=== PATIENT | female | born 1985 | race Caucasian/White ===

== ENCOUNTER 2022-08-23 19:02 | Outpatient (CLI) | payer MEDICAID, OTHER ==
[~2022-08-23] VITALS: Ht 170.2 cm; Wt 94.4 kg
[2022-08-23 19:25] VITALS: BP 119/71
[2022-08-23 19:30] VITALS: BP 119/71
[2022-08-23] MEDS ORDERED: FERR-84 PO (19:51)
[2022-08-23] MEDS ORDERED: LIOT5TAB10 PO (19:51)
[2022-08-23] MEDS ORDERED: LEVO137C4 PO (19:51)
[2022-08-23] MEDS ORDERED: PREN-142 PO (19:51)
[2022-08-23 19:52] LABS: BILIRUBIN,URINE NEGATIVE (NEGATIVE); CLARITY,URINE CLEAR; COLOR,URINE DARK YELLOW; GLUCOSE, URINE (UA) NEGATIVE (NEGATIVE); KETONES,URINE NEGATIVE (NEGATIVE); LEUKOCYTE ESTERASE ,URINE NEGATIVE (NEGATIVE); NITRITE,URINE NEGATIVE (NEGATIVE); PH,URINE 6.5 (5-9); PROTEIN,URINE NEGATIVE (NEGATIVE)
[2022-08-23 20:06] LABS: AMORPHOUS SEDIMENT,UR FEW AMOR URATES /LPF; BACTERIA,URINE TRACE /HPF; RBC,URINE 0-2 /HPF; WBC,URINE 0-2 /HPF
--- NOTE | 2022-08-23 20:23 | OB Triage Report ---
Standard Progress Note Progress Notes/Assess & Plan Date Seen by a Provider: August 23, 2022 Time Seen by a Provider: 20:21 Expected Date of Delivery: August 22, 2022 Gestational Age in Weeks: 40 Gestational Age in Days: 1 LMP/JAMIA Comment: IUP @ 40w1d Progress/Assessment & Plan This 36yo presents to L&D with c/o CTXs Denies LOF VB but states decreased movement. FHT 130 Reactive CVX 3/50/-4 Per RN no change after 2hr TOCOs occasional Final Diagnosis IUP @ 40w1d False labor DC to home Labor precautions Keep next appt. Diagnosis/Problems Diagnosis/Problems (1) 40 weeks gestation of Status: Acute Assessment & Plan: no cervical change DC to home Labor precautions Keep next appt (2) False labor after 37 completed weeks of gestation Status: Acute Assessment & Plan: no cervical change DC to home Labor precautions Keep next appt LUCRECIA BREWER DO August 23, 2022 20:23
== END 2022-08-23 21:42 | disposition home or self-care (01) ==
LOC: WSo 19:02 → LDRP 19:02 → WSo 21:42
PROVIDERS: ATTEND Obstetrics & Gynecology
DX: O47.1 False labor at or after 37 completed weeks of gestation (principal); Z3A.40 40 weeks gestation of pregnancy
CPT/HCPCS: 81000; 99213

== ENCOUNTER 2022-08-24 13:32 | Outpatient (CLI) | payer MEDICAID ==
[~2022-08-24] VITALS: Ht 170.2 cm; Wt 94.2 kg
[~2022-08-24 13:32] MED LIST: FERR-84 PO; LEVO137C4 PO; LIOT5TAB10 PO; PREN-142 PO
[2022-08-24 14:03] VITALS: BP 117/61
--- NOTE | 2022-08-25 10:44 | OB Triage Report ---
Standard Progress Note Progress Notes/Assess & Plan Time Seen by a Provider: 10:39 Expected Date of Delivery: August 22, 2022 Gestational Age in Weeks: 40 Gestational Age in Days: 2 LMP/JAMIA Comment: JAMIA is 08/22/22 dated by LMP, which was consistent with a 7 week ultrasound Progress/Assessment & Plan Patient not seen by Physician. RN report received Pt presented for contractions x2 days. Cervical exam was 3cm/thick/ballotable station, which was unchanged from exam performed in clinic 08/20/22. Patient was comfortable in triage and did not desire pain management while in triage. SVE remained unchanged with 1-2 hr labor check in triage. She was seen in triage one day prior for same concern, and UA was unremarkable. Patient had no other concerns. Vitals signs were stable, FHT reactive, and contractions on toco were q 2- 9 minutes, and irregular. Patient has a follow-up appointment scheduled for 08/27/22, and instructed to follow-up with scheduled visit. Patient was discharged home in good medical condition with return precautions Final Diagnosis Intrauterine at 40w2d Uterine contractions CASEY SCHROEDER MD August 25, 2022 10:44
== END 2022-08-24 16:19 | disposition home or self-care (01) ==
LOC: LDRP 13:32 → WSo 13:32
PROVIDERS: ATTEND Obstetrics & Gynecology
DX: O47.1 False labor at or after 37 completed weeks of gestation (principal); Z3A.40 40 weeks gestation of pregnancy
CPT/HCPCS: 99213

== ENCOUNTER 2022-08-28 00:40 | Inpatient (IN) | payer MEDICAID ==
[~2022-08-28] VITALS: Ht 170.2 cm; Wt 94.4 kg
[2022-08-28] VITALS (9 sets, daily range): BP systolic 110–139; BP diastolic 57–92
[2022-08-28 00:59] LABS: BILIRUBIN,URINE NEGATIVE (NEGATIVE); CLARITY,URINE TURBID; COLOR,URINE YELLOW; GLUCOSE, URINE (UA) NEGATIVE (NEGATIVE); KETONES,URINE NEGATIVE (NEGATIVE); LEUKOCYTE ESTERASE ,URINE 2+ (NEGATIVE); NITRITE,URINE NEGATIVE (NEGATIVE); PROTEIN,URINE NEGATIVE (NEGATIVE)
[2022-08-28] MEDS ORDERED: D5 LR IV SOLUTION 1,000 ML IV SCH (01:15)
[2022-08-28] MEDS ORDERED: MINERAL OIL 30 ML UDC TOP PRN (01:15)
[2022-08-28 01:29] LABS: BACTERIA,URINE LARGE /HPF; WBC,URINE 50-100 /HPF; YEAST,URINE FEW /HPF
[2022-08-28 01:35] LABS: BASOPHILS % (AUTO) 0 % (0-10); EOSINOPHILS # (AUTO) 0.2 10^3/uL (0.0-0.3); EOSINOPHILS % (AUTO) 2 % (0-10); HEMATOCRIT 39 % (35-52); HEMOGLOBIN 13.5 g/dL (11.5-16.0); LYMPHOCYTES % (AUTO) 20 % (12-44); MEAN CORPUSCULAR HEMOGLOBIN 32 pg (25-34); MEAN CORPUSCULAR HGB CONC 35 g/dL (32-36); MEAN CORPUSCULAR VOLUME 92 fL (80-99); MEAN PLATELET VOLUME 11.6 fL (9.0-12.2); MONOCYTES % (AUTO) 10 % (0-12); NEUTROPHILS # (AUTO) 6.8 10^3/uL (1.8-7.8); NEUTROPHILS % (AUTO) 68 % (42-75); PLATELET COUNT 175 10^3/uL (130-400)
[2022-08-28] MEDS ORDERED: OXYTOCIN PRE-MIX DRIP 1,000 ML IV ONE (01:52)
[2022-08-28] MEDS ORDERED: LIDOCAINE 1% INJ 10 ML VIAL ONE (02:00)
[2022-08-28] MEDS ORDERED: OXYTOCIN PRE-MIX DRIP 500 ML IV SCH (03:00)
[2022-08-28] MEDS ORDERED: WITCH HAZEL(TUCKS) 40 EA JAR TOP PRN (03:00)
[2022-08-28] MEDS ORDERED: BENZOCAINE/MENTHOL (DERMOPLAST) 56 ML CAN TP PRN (03:00)
[2022-08-28] MEDS ORDERED: TETANUS,DIPTH,PERTUSS P/F (BOOSTRIX) 0.5 ML VIAL IM ONE (03:00)
[2022-08-28] MEDS ORDERED: MEASLES,MUMPS,RUBELLA 1 EA INJ SQ ONE (03:00)
[2022-08-28] MEDS ORDERED: NALOXONE 0.4 MG/ML 1 ML (NARCAN) VIAL IV PRN (03:00)
--- NOTE | 2022-08-28 03:06 | History & Physical-OB ---
OB - Chief Complaint & HPI Date/Time Date of Admission: Date of Admission: August 28, 2022 at 01:16 Date seen by a Provider: August 28, 2022 Time Seen by a Provider: 01:40 Chief Complaint/History OB-Reason for Admission/Chief: Onset of Labor Hx : 5 Hx Para: 3 Expected Date of Delivery: August 22, 2022 Gestational Age in Weeks: 40 Gestational Age in Days: 6 Admission Nurse Assessment Rev: Yes Allergies and Home Medications Allergies Coded Allergies: Penicillins (Verified Allergy, Intermediate, Rash, 08/23/22) amoxicillin (Verified Allergy, Intermediate, Rash, 08/23/22) Patient Home Medication List Home Medication List Reviewed: Yes Ferrous Sulfate (Iron) Unknown Strength Tablet, Unknown Dose PO DAILY, (Reported) Entered as Reported by: LOIDA LAGOS on 08/23/221950 Last Action: Held Levothyroxine Sodium (Levothyroxine) 137 Mcg Capsule, 137 MCG PO DAILY, (Reported) Entered as Reported by: LOIDA LAGOS on 08/23/221950 Last Action: Converted Liothyronine Sodium (Liothyronine Sodium) 5 Mcg Tablet, 5 MCG PO DAILY, (Reported) Entered as Reported by: LOIDA LAGOS on 08/23/221950 Last Action: Converted Vit No.124/Iron/FA ( Vitamin Tablet) Unknown Strength Tablet, Unknown Dose PO DAILY, (Reported) Entered as Reported by: LOIDA LAGOS on 08/23/221950 Last Action: Converted OB - History Hx of Present Care: Yes Ultrasounds: Normal mid trimester US Obstetrical Complications: None Medical Complications: Other (hypothyroid) Information Induced Hypertension: No Maternal Gestational Diabetes: No Hemorrhage: No Obstetrical History Hx : 5 Hx Para: 3 Hx # Term Pregnancies: 2 Hx # Pregnancies: 1 Number of Living Children: 3 Hx Termination: No Hx Total # of Abortions (Spona: 1 Hx Multiple Gestation: No Hx Ectopic : No Hx Stillbirth: No Hx Complication: No Hx Induced Hypertens: No Hx Maternal Gestational Diabet: No Hx Hemorrhage: No Delivery History Hx Dystocia: No Hx Forceps Assisted Delivery: No Hx Vacuum Extraction Assisted: No Hx Placenta Abnormality: No Hx Distress: No Hx Large For Gestational Age I: No Hx Small for Gestational Age I: No Hx Section: No Hx Vaginal Delivery Post C-Sec: No Hx Blood Disorders: No Adverse Rxn to Tranfusion: No Patient Past Medical History hypothyroid Social History/Family History Alcohol Use: Denies Use Recreational Drug Use: No 2nd Hand Smoke Exposure: No Immunizations Rubella: immune RPR/VDRL: Negative GBS Status: Negative HBsAG: Negative OB - Admission Exam Physical Exam Vitals: Vital Signs 08/28/22 01:04 Temp 36.3 Pulse 77 Resp 18 B/P (MAP) 131/91 Pulse Ox 99 O2 Delivery Room Air HEENT: NCAT Heart: Rhythm Normal Lungs: Clear Abdomen: Gravid Extremities: Normal Cervical Dilatation: 8cm Effacement: 100% Station: -1 Membranes: Intact (AROM large amount clear fluid) Amniotic Fluid: Clear Heart Rate: 130's Accelerations: Accelerations Present Decelerations: No Decelerations Short Term Variability: Present [facility] Variability: Average (6-25) Contractions on Admission: < 5 Minutes Apart Date/Time Contractions Began;: 08/27/22 2300 Frequency of Contractions: q1-2min Intensity: Firm Labs Laboratory Tests Test 08/28/22 00:30 08/28/22 01:20 Range/Units Urine Color YELLOW Urine Clarity TURBID Urine pH 6.0 5-9 Urine Specific [place] 1.025 H 1.016-1.022 Urine Protein NEGATIVE NEGATIVE Urine Glucose (UA) NEGATIVE NEGATIVE Urine Ketones NEGATIVE NEGATIVE Urine Nitrite NEGATIVE NEGATIVE Urine Bilirubin NEGATIVE NEGATIVE Urine Urobilinogen 1.0 < = 1.0 MG/DL Urine Leukocyte Esterase 2+ H NEGATIVE Urine RBC (Auto) 2+ H NEGATIVE Urine RBC 10-25 H /HPF Urine WBC 50-100 H /HPF Urine Squamous Epithelial Cells 10-25 H /HPF Urine Crystals NONE /LPF Urine Bacteria LARGE H /HPF Urine Casts NONE /LPF Urine Mucus SMALL H /LPF Urine Yeast FEW H /HPF Urine Culture Indicated YES White Blood Count 10.0 4.3-11.0 10^3/uL Red Blood Count 4.24 3.80-5.11 10^6/uL Hemoglobin 13.5 11.5-16.0 g/dL Hematocrit 39 35-52 % Mean Corpuscular Volume 92 80-99 fL Mean Corpuscular Hemoglobin 32 25-34 pg Mean Corpuscular Hemoglobin Concent 35 32-36 g/dL Red Cell Distribution Width 12.5 10.0-14.5 % Platelet Count 175 130-400 10^3/uL Mean Platelet Volume 11.6 9.0-12.2 fL Immature Granulocyte % (Auto) 1 % Neutrophils (%) (Auto) 68 42-75 % Lymphocytes (%) (Auto) 20 12-44 % Monocytes (%) (Auto) 10 0-12 % Eosinophils (%) (Auto) 2 0-10 % Basophils (%) (Auto) 0 0-10 % Neutrophils # (Auto) 6.8 1.8-7.8 10^3/uL Lymphocytes # (Auto) 2.0 1.0-4.0 10^3/uL Monocytes # (Auto) 1.0 0.0-1.0 10^3/uL Eosinophils # (Auto) 0.2 0.0-0.3 10^3/uL Basophils # (Auto) 0.0 0.0-0.1 10^3/uL Immature Granulocyte # (Auto) 0.1 0.0-0.1 10^3/uL OB - Assessment/Plan/Diagnosis Assessment Assessment: active labor Admission Dx IUP@ 40w6d Active Labor GBS neg Rubella immune O+ Admission Status: Inpatient Order (span 2 midnights) Reason for Inpatient Admission: Pt is 36yo presenting to L&D @ 40w6d with c/o CTXs that started around 2330 tonight She denies LOF VB GBS neg. Upon arrival CVX was 4cm per RN and CTXs Q1-2min Plan Plan: Expectant Management Discharge Diagnosis Diagnosis: IUP@ 40w6d GBS neg Rubella immune O+ LUCRECIA BREWER DO August 28, 2022 03:06
--- NOTE | 2022-08-28 03:26 | OB Labor & Delivery Record ---
Vag Delivery Note Vag Delivery Note Date of Delivery: 08/28/22 Preoperative Diagnosis: Elida Sandhu is a (36 /Para 5 / 3, Gestational Age (wks)40with [ ] Postoperative Diagnosis: Same Surgeon: LUCRECIA BREWER [employer]: Anesthesia: None Delivery Type: Findings: [] Viable female , apgars 7/9 weight 6#9oz 2970g Lacerations: none Intact placenta with 3 vessel cord. Nuchal cord x1 loose Estimated Blood Loss: 100 ml Complications: None Condition: Stable Description of Procedure: The patient is a 36 year old female who presented with CTXs and cervical change. She was admitted and informed consent was obtained. Her labor course was uneventful. She progressed to complete dilatation and began to push. She was then set up for delivery. The infant's head was delivered atraumatically in the MARY BETH position.A Nuchal cord x1 was loose and reduced. The anterior (right) shoulder delivered followed by the posterior shoulder and remainder of the infant's body without difficulty. Upon delivery, the infant was vigorous and placed on maternal chest and the mouth and nares were bulb suctioned. After a delayed cord was doubly clamped and cut and the remained on maternal chest. The placenta with 3-vessel cord delivered spontaneously and intact. Vigorous fundal massage was performed and the fundus was found to be firm. QBL w as 100cc IV oxytocin was given. Examination of the vagina and perineum revealed no lacerations. All sponge, instrument and needle counts were correct x2. Mom and baby were both in stable condition in the labor suite. Vitals - Labs Vital Signs - I&O Vital Signs Date Time Temp Pulse Resp B/P (MAP) Pulse Ox O2 Delivery O2 Flow Rate FiO2 08/28/22 01:04 36.3 77 18 131/91 99 Room Air Labs Laboratory Tests 08/28/22 00:30: Urine Color YELLOW, Urine Clarity TURBID, Urine pH 6.0, Urine Specific [place] 1.025H, Urine Protein NEGATIVE, Urine Glucose (UA) NEGATIVE, Urine Ketones NEGATIVE, Urine Nitrite NEGATIVE, Urine Bilirubin NEGATIVE, Urine Urobilinogen 1.0, Urine Leukocyte Esterase 2+H, Urine RBC (Auto) 2+H, Urine RBC 10-25H, Urine WBC 50-100H, Urine Squamous Epithelial Cells 10-25H, Urine Crystals NONE, Urine Bacteria LARGEH, Urine Casts NONE, Urine Mucus SMALLH, Urine Yeast FEWH, Urine Culture Indicated YES 08/28/22 01:20: White Blood Count 10.0, Red Blood Count 4.24, Hemoglobin 13.5, Hematocrit 39, Mean Corpuscular Volume 92, Mean Corpuscular Hemoglobin 32, Mean Corpuscular Hemoglobin Concent 35, Red Cell Distribution Width 12.5, Platelet Count 175, Mean Platelet Volume 11.6, Immature Granulocyte % (Auto) 1, Neutrophils (%) (Auto) 68, Lymphocytes (%) (Auto) 20, Monocytes (%) (Auto) 10, Eosinophils (%) (Auto) 2, Basophils (%) (Auto) 0, Neutrophils # (Auto) 6.8, Lymphocytes # (Auto) 2.0, Monocytes # (Auto) 1.0, Eosinophils # (Auto) 0.2, Basophils # (Auto) 0.0, Immature Granulocyte # (Auto) 0.1 LUCRECIA BREWER DO August 28, 2022 03:26
[2022-08-28] MEDS ORDERED: LIDOCAINE 1% INJ 20 ML VIAL IJ PRN (04:00)
[2022-08-28] MEDS: IBUPROFEN 800 MG (MOTRIN) TAB PO SCH ×4 (04:05→21:53)
[2022-08-28] MEDS: ACETAMINOPHEN 500 MG TAB (TYLENOL) PO SCH ×2 (04:12→10:41)
[2022-08-28] MEDS ORDERED: CATHETER FLUSH 10 ML SYR IV SCH (06:00)
[2022-08-28] MEDS: CATHETER FLUSH 10 ML SYR IV SCH ×2 (07:00→10:38)
[2022-08-28] MEDS ORDERED: PRENATAL VITAMIN 1 EA TAB PO SCH (07:00)
[2022-08-28] MEDS ORDERED: DOCUSATE CALCIUM 240 MG (SURFAK) CAP PO SCH (09:00)
[2022-08-28] MEDS ORDERED: NON-FORMULARY MEDICATION 1 EA EA (Liothyronine Sodium 5 MCG) PO SCH (09:00)
[2022-08-28] MEDS: PRENATAL VITAMIN 1 EA TAB PO SCH (10:38)
[2022-08-28] MEDS: DOCUSATE SODIUM 100 MG (COLACE) CAP PO SCH ×2 (10:38→19:59)
[2022-08-28] MEDS: LEVOTHYROXINE 112 MCG (LEVOTHROID) TAB PO SCH (10:38)
[2022-08-28] MEDS: LEVOTHYROXINE 25 MCG (LEVOTHROID) TAB PO SCH (10:39)
[2022-08-29 01:59] VITALS: BP 107/55
[2022-08-29] MEDS: IBUPROFEN 800 MG (MOTRIN) TAB PO SCH (05:13)
[2022-08-29 06:03] LABS: BASOPHILS % (AUTO) 0 % (0-10); EOSINOPHILS # (AUTO) 0.3 10^3/uL (0.0-0.3); EOSINOPHILS % (AUTO) 3 % (0-10); HEMATOCRIT 32 % (35-52); HEMOGLOBIN 10.6 g/dL (11.5-16.0); LYMPHOCYTES # (AUTO) 2.1 10^3/uL (1.0-4.0); LYMPHOCYTES % (AUTO) 27 % (12-44); MEAN CORPUSCULAR HEMOGLOBIN 32 pg (25-34); MEAN CORPUSCULAR HGB CONC 34 g/dL (32-36); MEAN CORPUSCULAR VOLUME 96 fL (80-99); MEAN PLATELET VOLUME 11.4 fL (9.0-12.2); MONOCYTES # (AUTO) 0.8 10^3/uL (0.0-1.0); MONOCYTES % (AUTO) 9 % (0-12); NEUTROPHILS # (AUTO) 4.7 10^3/uL (1.8-7.8); NEUTROPHILS % (AUTO) 59 % (42-75); PLATELET COUNT 162 10^3/uL (130-400)
[2022-08-29 07:30] VITALS: BP 114/55
--- NOTE | 2022-08-29 07:36 | Postpartum Progress Note ---
Note Note Day # 1 Subjective: Patient is without complaints. Ambulating, voiding. Tolerating a regular diet without nausea or vomiting. Normal lochia. Pain is well controlled with oral pain medications.breast feeding. [] Objective: [] Physical Exam: General - Alert and oriented, no apparent distress Breasts no erythema or engorgement Abdomen - Soft, appropriately tender to palpation, non-distended, fundus firm at umbilicus Lochia minimal Extremities - no edema, negative Thai's bilaterally Assessment: [] post- day #1, status post normal vaginal delivery. Recovering well, hemodynamically stable Plan: Routine care. Encourage breast feeding. Encourage ambulation. Ferrous sulfate supplementation. Plan for discharge today Vitals - Labs Vital Signs - I&O Vital Signs Date Time Temp Pulse Resp B/P (MAP) Pulse Ox O2 Delivery O2 Flow Rate FiO2 08/29/22 01:59 36.5 81 16 107/55 (72) 98 Room Air 08/28/22 19:55 36.4 86 16 110/70 (83) 99 Room Air 08/28/22 16:10 36.4 67 16 123/64 (83) 99 Room Air 08/28/22 12:20 36.1 68 16 119/57 (77) 100 Room Air 08/28/22 10:35 36.2 65 16 139/66 (90) 100 Room Air Labs Laboratory Tests 08/29/22 05:54: White Blood Count 8.0, Red Blood Count 3.31L, Hemoglobin 10.6#L, Hematocrit 32L, Mean Corpuscular Volume 96, Mean Corpuscular Hemoglobin 32, Mean Corpuscular Hemoglobin Concent 34, Red Cell Distribution Width 12.7, Platelet Count 162, Mean Platelet Volume 11.4, Immature Granulocyte % (Auto) 1, Neutrophils (%) (Auto) 59, Lymphocytes (%) (Auto) 27, Monocytes (%) (Auto) 9, Eosinophils (%) (Auto) 3, Basophils (%) (Auto) 0, Neutrophils # (Auto) 4.7, Lymphocytes # (Auto) 2.1, Monocytes # (Auto) 0.8, Eosinophils # (Auto) 0.3, Basophils # (Auto) 0.0, Immature Granulocyte # (Auto) 0.1 LUCRECIA BREWER DO August 29, 2022 07:36
[2022-08-29] MEDS: LEVOTHYROXINE 112 MCG (LEVOTHROID) TAB PO SCH (07:39)
[2022-08-29] MEDS: LEVOTHYROXINE 25 MCG (LEVOTHROID) TAB PO SCH (07:40)
[2022-08-29] MEDS: DOCUSATE SODIUM 100 MG (COLACE) CAP PO SCH (07:40)
[2022-08-29] MEDS: PRENATAL VITAMIN 1 EA TAB PO SCH (07:40)
[2022-08-29] MEDS ORDERED: IBUP-1780 PO ×2 (07:42)
[2022-08-29] MEDS ORDERED: WTCHGPD TOP ×2 (07:42)
[2022-08-29] MEDS ORDERED: DOCU100C37 PO ×2 (07:42)
--- NOTE | 2022-08-29 07:44 | Discharge Inst-Simple/Standard ---
Discharge Inst-Standard Reconcile Patient Problems Problems Reviewed?: Yes Discharge Medications New, Converted or Re-Newed RX: Transmitted to Pharmacy Patient Instructions/Follow Up Plan of Care/Instructions/FU: Nothing in the vagina Call if increase pain, fever (T>101F) or bleeding Activity as Tolerated: Yes Discharge Diet: Regular Diet LUCRECIA BREWER DO August 29, 2022 07:44
[2022-08-29 12:04] VITALS: BP 114/55
== END 2022-08-29 13:15 | disposition home or self-care (01) | DRG 807 ==
LOC: WSo 00:40 → LDRP 00:41 → WSo 01:16 → LDRP 01:16
PROVIDERS: ADMIT Obstetrics & Gynecology; ATTEND Obstetrics & Gynecology
PROC: 10E0XZZ Delivery of Products of Conception, External Approach (ICD-10-PCS; principal; 2022-08-28)
DX: O48.0 Post-term pregnancy (principal); Z37.0 Single live birth; O69.81X0 Labor and delivery complicated by cord around neck, without compression, not applicable or unspecified; Z3A.40 40 weeks gestation of pregnancy; Z88.1 Allergy status to other antibiotic agents; Z88.0 Allergy status to penicillin; Z79.899 Other long term (current) drug therapy
CPT/HCPCS: 36415; 81000; 85025; 86780; 86850; 86900; 86901; 87088; 99212